=== PATIENT | female | born 1960 | race Caucasian/White ===

== ENCOUNTER → 2016-12-15 | Outpatient (CLI) | payer OTHER | LOC: FIMAGING 08:52 | PROVIDERS: ATTEND Orthopaedic Surgery | DX: M25.562 Pain in left knee (principal); M23.252 Derangement of posterior horn of lateral meniscus due to old tear or injury, left knee; M22.42 Chondromalacia patellae, left knee; M76.32 Iliotibial band syndrome, left leg; M76.52 Patellar tendinitis, left knee; M25.462 Effusion, left knee; M23.41 Loose body in knee, right knee; M76.892 Other specified enthesopathies of left lower limb, excluding foot ==

== ENCOUNTER → 2016-12-23 | Outpatient (CLI) | payer OTHER | LOC: FIMAGING 09:35 | DX: Z12.31 Encounter for screening mammogram for malignant neoplasm of breast (principal) | CPT/HCPCS: G0202 ==

== ENCOUNTER → 2017-08-07 | Outpatient (CLI) | payer OTHER | LOC: FIMAGING 09:04 | PROVIDERS: ATTEND Family Medicine | DX: I25.10 Atherosclerotic heart disease of native coronary artery without angina pectoris (principal); M51.34 Other intervertebral disc degeneration, thoracic region; I10 Essential (primary) hypertension; G47.00 Insomnia, unspecified; Z73.3 Stress, not elsewhere classified ==